=== PATIENT | female | born 1960 | race African-American/Black ===

== ENCOUNTER 2017-03-20 14:52 | Emergency (ER) | payer OTHER ==
[~2017-03-20] VITALS: Ht 167.6 cm; Wt 74.8 kg
[~2017-03-20 14:52] MED LIST: BACTRIM DS TAB1 EACH PO; DOXYCYCLINE 10100 MG PO; DUONEB 2.5-0.5 M3 ML INH; FLOVENT HFA 2220 MC1 INH; KOMBIGLYZE XR1 EAC2 PO; NORCO 10-325 T1 EACH PO; NORCO 5-325 TA1 EACH PO; NOVOLOG100 UNIT/1 SUBQ; PREDNISONE 10 M10 MG PO; PROAIR HFA8.5 GM INH; PROPRANOLOL 1010 M1 PO; TRIBENZOR 40-11 EAC1 PO
[2017-03-20] MEDS ORDERED: MOBIC7.5 MG PO (17:21)
[2017-03-20 18:01] VITALS: BP 138/88
== END 2017-03-20 17:30 | disposition home or self-care (01) ==
LOC: ER 14:52
DX: M79.604 Pain in right leg (principal); J44.9 Chronic obstructive pulmonary disease, unspecified; I10 Essential (primary) hypertension; J45.909 Unspecified asthma, uncomplicated; E66.9 Obesity, unspecified; Z86.73 Personal history of transient ischemic attack (TIA), and cerebral infarction without residual deficits; Z87.09 Personal history of other diseases of the respiratory system; Z88.7 Allergy status to serum and vaccine; Z88.8 Allergy status to other drugs, medicaments and biological substances

== ENCOUNTER 2019-09-22 21:47 | Emergency (ER) | payer OTHER ==
[~2019-09-22] VITALS: Ht 165.1 cm; Wt 99.8 kg
[~2019-09-22 21:47] MED LIST changes: +MOBIC7.5 MG PO
[2019-09-22 22:49] LABS: ABSOLUTE NEUTROPHILS 9.7 thou/uL (1.4-8.2); BASOPHILS 0.3 % (0.0-2.0); HEMOGLOBIN 14.5 gm/dL (12.0-15.0); LYMPHOCYTES 5.5 % (24.0-44.0); MCH 27.4 pg (26.0-34.0); MCHC 32.9 g/dL (28.0-37.0); MCV 83.5 fL (80.0-100.0); MONOCYTES 8.4 % (1.0-8.0); PLATELET COUNT 196 thou/uL (150-400); POLYS 84.8 % (36.0-66.0); RBC 5.27 mil/uL (4.20-5.00); RDW 13.6 % (10.5-14.5); WBC 11.4 thou/uL (4.0-11.0)
[2019-09-22 23:09] LABS: ANION GAP 9 mmol/L (7-16); BUN 12 mg/dL (7-18); CALCIUM 9.7 mg/dL (8.5-10.1); CHLORIDE 103 mmol/L (98-107); CO2 27 mmol/L (21-32); CREATININE 0.9 mg/dL (0.6-1.0); GLUCOSE 89 mg/dL (74-106); POTASSIUM 3.5 mmol/L (3.5-5.1); SODIUM 139 mmol/L (136-145)
[2019-09-22 23:19] LABS: TROPONIN-I <0.06 ng/mL (<0.06)
[2019-09-23] MEDS ORDERED: IPRATROPIU0.2 MG/1 M INH (00:50)
[2019-09-23] MEDS ORDERED: PREDNISONE 20 M20 MG PO (00:50)
[2019-09-23 01:04] VITALS: BP 141/70
--- NOTE | 2019-09-23 08:47 | EKG ---
[facility] [place] [address] ELECTROCARDIOGRAM REPORT Name: CHIN LIZ Room #: DEP [facility].R.#: [id number] Admission: 09/22/19 Attend Phys: Discharge: 09/23/19 Date of : 60 Report #: [id number] THIS REPORT FOR: cc: INDERJIT - Elif family physician/PCP INDERJIT - Elif family physician/PCP Balta Marcus MD [facility] THIS REPORT FOR: //name// [facility] ED Test Date: 2019-09-22 Test Time: 22:22:11 Pat Name: CHIN LIZ Department: Room: Gender: F [employer]: MICHELLE : 1960 Requested By: Sonia Deluca Order Number: [id number] MD: Balta Marcus Measurements Intervals [place] Rate: 110 P: 67 AL: 177 QRS: -30 QRSD: 85 T: 48 QT: 335 QTc: 454 Interpretive Statements Sinus tachycardia Left axis deviation Poor R wave progression Compared to ECG 11/22/2013 23:40:09 no significant change was found Electronically Signed On 09-23-2019 8:46:25 TELEVISION ENGINEERING TEACHER by Balta Marcus [email or web address] <ELECTRONICALLY SIGNED> By: Balta Marcus MD, FACC 09/23/19 0846 21 21 Balta Marcus MD, [facility] /EPI
== END 2019-09-23 01:04 | disposition home or self-care (01) ==
LOC: ER 21:47
PROVIDERS: Emergency Medicine
DX: R06.02 Shortness of breath (principal); I10 Essential (primary) hypertension; E11.9 Type 2 diabetes mellitus without complications; E66.8 Other obesity; J44.9 Chronic obstructive pulmonary disease, unspecified; J45.909 Unspecified asthma, uncomplicated; Z86.73 Personal history of transient ischemic attack (TIA), and cerebral infarction without residual deficits; Z68.36 Body mass index [BMI] 36.0-36.9, adult; Z87.891 Personal history of nicotine dependence; Z88.7 Allergy status to serum and vaccine; Z88.8 Allergy status to other drugs, medicaments and biological substances